=== PATIENT | female | born 1935 | race Caucasian/White ===

== ENCOUNTER 2017-09-09 18:49 | Emergency (ER) | payer MEDICARE, MEDICAID ==
--- NOTE | 2017-09-09 19:53 | ER Document Report ---
ED Medical Screen (RME) - General Chief Complaint: Shortness Of Breath Stated Complaint: SHORTNESS OF BREATH Time Seen by Provider: 09/09/17 19:44 Notes: RAPID MEDICAL EVALUATION DISCLOSURE I have seen this patient as part of a Rapid Medical Evaluation and, if applicable, placed any initially appropriate orders. The patient will be seen and fully evaluated, including a full history and physical exam, by a provider ( in Main ED or Fast Track) when a room becomes available. 81-year-old female here with [id number] who states that she is had some dyspnea on exertion and bilateral leg swelling over the past 1 week. The symptoms are worse with lying flat. She is needing to sleep on 2 pillows due to the severity of the symptoms. She has not tried anything for the symptoms. She denies any history of heart failure. EXAM Minimal bibasilar rales RRR 1+ pitting edema BLEs TRAVEL OUTSIDE OF THE [place] IN LAST 30 DAYS: No - Related Data Allergies/Adverse Reactions: No Known Allergies Allergy (Unverified 09/09/17 18:51) Physical Exam - Vital signs Vitals: Temp Pulse Resp BP Pulse Ox 98.0 F 80 18 143/59 H 96 09/09/17 18:55 09/09/17 18:55 09/09/17 18:55 09/09/17 18:55 09/09/17 18:55 Course - Vital Signs Vital signs: Temp Pulse Resp BP Pulse Ox 98.0 F 80 18 143/59 H 96 09/09/17 18:55 09/09/17 18:55 09/09/17 18:55 09/09/17 18:55 09/09/17 18:55
--- NOTE | 2017-09-09 20:27 | RADIOLOGY REPORT (SQ) ---
EXAM DESCRIPTION: CHEST 2 VIEWS COMPLETED DATE/TIME: 09/09/2017 8:20 pm REASON FOR STUDY: TRAVIS leg swelling; eval pneumonia edema ptx COMPARISON: None. EXAM PARAMETERS: NUMBER OF VIEWS: two views TECHNIQUE: Digital Frontal and Lateral radiographic views of the chest acquired. RADIATION DOSE: NA LIMITATIONS: none FINDINGS: LUNGS AND PLEURA: No opacities, masses or pneumothorax. No pleural effusion. MEDIASTINUM AND HILAR STRUCTURES: No masses or contour abnormalities. HEART AND VASCULAR STRUCTURES: Heart normal size. No evidence for failure. BONES: No acute findings. HARDWARE: None in the chest. OTHER: No other significant finding. IMPRESSION: NO ACUTE RADIOGRAPHIC FINDING IN THE CHEST. TECHNICAL DOCUMENTATION: JOB ID: [id number] [employer]- All Rights Reserved Reading location - IP/workstation name: [email or web address]
[2017-09-09 22:05] LABS: ABSOLUTE BASOPHILS # (AUTO) 0.1 10^3/uL (0.0-0.2); ABSOLUTE EOSINOPHILS # (AUTO) 0.3 10^3/uL (0.0-0.6); ABSOLUTE LYMPHOCYTES (AUTO) 2.1 10^3/uL (0.5-4.7); ABSOLUTE MONOCYTES (AUTO) 0.9 10^3/uL (0.1-1.4); ABSOLUTE NEUT (AUTO) 4.3 10^3/uL (1.7-8.2); BASOPHILS % (AUTO) 0.8 % (0-2); EOSINOPHILS % (AUTO) 4.2 % (0-6); HEMATOCRIT 39.6 % (36.0-47.0); HEMOGLOBIN 13.1 g/dL (12.0-15.5); LYMPHOCYTES % (AUTO) 27.7 % (13-45); MEAN CORPUSCULAR HEMOGLOBIN 29.9 pg (27.0-33.4); MEAN CORPUSCULAR VOLUME 91 fl (80-97); MONOCYTES % (AUTO) 11.3 % (3-13); PLATELET COUNT 322 10^3/uL (150-450); RED BLOOD COUNT 4.37 10^6/uL (3.72-5.28); RED CELL DISTRIBUTION WIDTH 14.3 % (11.5-14.0); TOTAL CELLS COUNTED % (AUTO) 100 %; WHITE BLOOD COUNT 7.7 10^3/uL (4.0-10.5)
[2017-09-09 22:20] LABS: ALANINE AMINOTRANSFERASE 23 U/L (9-52); ALBUMIN 3.9 g/dL (3.5-5.0); ALKALINE PHOSPHATASE 96 U/L (38-126); ANION GAP 7 (5-19); ASPARTATE AMINO TRANSFERASE 33 U/L (14-36); BILIRUBIN,DIRECT 0.3 mg/dL (0.0-0.4); BILIRUBIN,TOTAL 0.4 mg/dL (0.2-1.3); BLOOD UREA NITROGEN 19 mg/dL (7-20); CALCIUM 9.6 mg/dL (8.4-10.2); CARBON DIOXIDE 30 mmol/L (22-30); CHLORIDE 105 mmol/L (98-107); GLUCOSE 113 mg/dL (75-110); POTASSIUM 4.1 mmol/L (3.6-5.0); SODIUM 142.1 mmol/L (137-145)
[2017-09-09 22:31] LABS: NT PRO BNP 445 pg/mL (<450); TROPONIN I < 0.012 ng/mL
[2017-09-09 23:07] VITALS: BP 139/55
--- NOTE | 2017-09-09 23:22 | ER Document Report ---
ED General - General Chief Complaint: Shortness Of Breath Stated Complaint: SHORTNESS OF BREATH Time Seen by Provider: 09/09/17 19:44 Notes: Patient is an 81 year old female with history of hypertension who presents with 10 days of an evening cough. She presents with her [id number], a former registered nurse who reports that she is concerned the patient has been needing more pillows to sleep at night and seems to have a persistent, nagging cough at night that often keeps her awake. Symptoms have overall been unchanged since onset 10 days ago. They have tried cetirizine as well as doubling the patient' s omeprazole dosing without any significant improvement. Nothing other than the nighttime seems to worsen the patient's and his. The patient is clear to state that she overall feels fine during the day, no coughing or shortness of breath but that when she lies down at night she develops a persistent cough. She has not seen her general doctor regarding today's concerns. She has no history of COPD or CHF. She denies any complaints at the time of my evaluation. TRAVEL OUTSIDE OF THE [place] IN LAST 30 DAYS: No - Related Data Allergies/Adverse Reactions: No Known Allergies Allergy (Unverified 09/09/17 18:51) Past Medical History - General Information source: Patient, Relative - Social History Smoking Status: Never Smoker Chew tobacco use (# tins/day): No Frequency of alcohol use: None Drug Abuse: None Lives with: Family Family History: Reviewed & Not Pertinent Patient has suicidal ideation: No Patient has homicidal ideation: No - Past Medical History Cardiac Medical History: Reports: Hx Hypertension Renal/ Medical History: Denies: Hx Peritoneal Dialysis GI Medical History: Reports: Hx Gastroesophageal Reflux Disease Past Surgical History: Reports: Hx Cholecystectomy, Hx Oral Surgery - Cleft Palate Review of Systems - Review of Systems Notes: Constitutional: Negative for fever. HENT: Negative for sore throat. Eyes: Negative for visual changes. Cardiovascular: Negative for chest pain. Respiratory: Positive for cough Gastrointestinal: Negative for abdominal pain, vomiting or diarrhea. Genitourinary: Negative for dysuria. Musculoskeletal: Negative for back pain. Skin: Negative for rash. Neurological: Negative for headaches, weakness or numbness. 10 point ROS negative except as marked above and in HPI. Physical Exam - Vital signs Vitals: Temp Pulse Resp BP Pulse Ox 98.0 F 80 18 143/59 H 96 09/09/17 18:55 09/09/17 18:55 09/09/17 18:55 09/09/17 18:55 09/09/17 18:55 Interpretation: Hypertensive Notes: PHYSICAL EXAMINATION: GENERAL: Well-appearing, well-nourished and in no acute distress. HEAD: Atraumatic, normocephalic. EYES: Pupils equal round and reactive to light, extraocular movements intact, sclera anicteric, conjunctiva are normal. ENT: nares patent, oropharynx clear without exudates. Small palatal defect over the central hard palate. moderately dry mucous membranes. NECK: Normal range of motion, supple without lymphadenopathy LUNGS: Breath sounds clear to auscultation bilaterally and equal. No wheezes rales or rhonchi. HEART: Regular rate and rhythm without murmurs ABDOMEN: Soft, nontender, normoactive bowel sounds. No guarding, no rebound. No masses appreciated. EXTREMITIES: Normal range of motion, no pitting or edema. No cyanosis. NEUROLOGICAL: No focal neurological deficits. Moves all extremities spontaneously and on command. PSYCH: Normal mood, normal affect. SKIN: Warm, Dry, normal turgor, no rashes or lesions noted. Course - Re-evaluation Re-evalutation: 09/09/17 23:24 Patient presents with approximately 10 days of nighttime coughing but no significant additional symptoms. The patient appears extremely well on exam, vitals within normal limits, chest x-ray and labs unremarkable. 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 This does not appear to be playing any role however at the palate has a very small punctate wound that patient reports is at the baseline. She does have some transmitted upper airway noise which clears easily when she coughs. No stridor, lymphadenopathy, wheezing or decreased air movement on lung examination. I suspect that the patient may have developed allergic rhinitis with associated postnasal drip as her symptoms occur almost exclusively at night when she tries to go to sleep. She also notes a large amount of coughing and itching in the morning. I have started her on Flonase as well as loratadine. At this time point I do not suspect CHF, TN, pneumonia, pulmonary embolus, bacterial tracheitis, or any alternative life-threatening pathology. At this time will discharge with return precautions and follow-up recommendations. Verbal discharge instructions given a the bedside and opportunity for questions given. Medication warnings reviewed. Patient is in agreement with this plan and has verbalized understanding of return precautions and the need for primary care follow-up in the next 24-72 hours. - Vital Signs Vital signs: Temp Pulse Resp BP Pulse Ox 98.0 F 80 21 H 139/55 H 99 09/09/17 18:55 09/09/17 18:55 09/09/17 23:00 09/09/17 22:01 09/09/17 23:00 - Laboratory Result Diagrams: 09/09/17 21:43 09/09/17 21:43 Laboratory results interpreted by me: 09/09/17 09/09/17 21:43 21:43 RDW 14.3 H Glucose 113 H - Diagnostic Test Radiology reviewed: Image reviewed, Reports reviewed Radiology results interpreted by me: 09/10/17 03:14 Chest x-ray: No acute infiltrate or pneumothorax Discharge - Discharge Clinical Impression: Cough, Postnasal drip Condition: Good Disposition: HOME, SELF-CARE Additional Instructions: Your chest x-ray and labs are normal today and do not suggest a dangerous cause of the nighttime cough that you have been having. Please begin taking loratadine 10 mg daily and take Flonase before going to sleep at night. Return if you develop chest pain, shortness of breath, pass out, develop a fever greater than 100.4F, or have any other symptoms that are worrisome to you. Prescriptions: Fluticasone Propionate [Flonase Nasal [place] 50 Mcg/[place] 16 gm] 2 sprays NASL Q12 #1 inhaler Loratadine 10 mg PO DAILY #30 tablet
--- NOTE | 2017-09-10 00:23 | EKG REPORT ---
SEVERITY:- ABNORMAL ECG - SINUS RHYTHM LEFT VENTRICULAR HYPERTROPHY : Confirmed by: Macrina Hoang MD 10-Sep-2017 00:22:45
== END 2017-09-09 23:44 | disposition home or self-care (01) ==
LOC: ER 18:49
DX: R05 Cough (principal); R09.82 Postnasal drip; R06.02 Shortness of breath; I10 Essential (primary) hypertension; Z90.49 Acquired absence of other specified parts of digestive tract
CPT/HCPCS: 36415; 71046; 80053; 83880; 84484; 85025; 87040; 93005; 93010; 99285

== ENCOUNTER 2017-11-03 16:24 | Observation (INO) | payer MEDICARE ==
[2017-11-03] MEDS ORDERED: ACETAMINOPHEN 325 MG TABLET PO ONE (16:33)
[2017-11-03] MEDS ORDERED: NORMAL SALINE 1000 ML 1,000 ML IV ONE (16:33)
--- NOTE | 2017-11-03 16:38 | ER Document Report ---
ED General - General Mode of Arrival: Stretcher Information source: Patient, Relative TRAVEL OUTSIDE OF THE [place] IN LAST 30 DAYS: No - HPI Patient complains to provider of: Confusion Onset: This afternoon Onset/Duration: Sudden Quality of pain: No pain Exacerbated by: Denies Relieved by: Denies Similar symptoms previously: No Recently seen / treated by doctor: No <WILDA RESTREPO - Last Filed: 11/03/17 19:52> <ANGELI HINES - Last Filed: 11/03/17 20:50> - General Stated Complaint: CONFUSION Time Seen by Provider: 11/03/17 16:27 - HPI Notes: Patient is an 81-year-old female brought to the emergency room by EMS after family reported a period of confusion, apparently patient did not know where she was, stated that the home she was and was not the family home, she has had some urinary incontinence and urinary frequency, as well as a low-grade temperature, denies any nausea, vomiting or diarrhea, patient denies any pain complaints, no chest pain or shortness of breath, no headache, she is noted to have a temperature of 99 via EMS, she recently moved up here from [place] and is staying with daughter and grandson, patient also recalls that she passed out while walking back from the shower house which is about 20 feet from the house, she is having trouble remembering any details of events after that (WILDA RESTREPO) - Related Data Allergies/Adverse Reactions: No Known Allergies Allergy (Unverified 09/09/17 18:51) Past Medical History - General Information source: Patient - Social History Smoking Status: Unknown if Ever Smoked Family History: Reviewed & Not Pertinent - Past Medical History Cardiac Medical History: Reports: Hx Hypertension Renal/ Medical History: Denies: Hx Peritoneal Dialysis GI Medical History: Reports: Hx Gastroesophageal Reflux Disease Past Surgical History: Reports: Hx Cholecystectomy, Hx Oral Surgery - Cleft Palate <WILDA RESTREPO - Last Filed: 11/03/17 19:52> Review of Systems - Review of Systems Constitutional: See HPI EENT: No symptoms reported Cardiovascular: No symptoms reported Respiratory: No symptoms reported Gastrointestinal: No symptoms reported Genitourinary: Frequency, Incontinence Female Genitourinary: No symptoms reported Musculoskeletal: No symptoms reported Skin: No symptoms reported Hematologic/Lymphatic: No symptoms reported Neurological/Psychological: Confusion -: Yes All other systems reviewed and negative <WILDA RESTREPO - Last Filed: 11/03/17 19:52> Physical Exam - Vital signs Interpretation: Normal - General General appearance: Appears well, Alert - HEENT Head: Normocephalic, Atraumatic Eyes: Normal Pupils: PERRL - Respiratory Respiratory status: No respiratory distress Chest status: Nontender Breath sounds: Normal Chest palpation: Normal - Cardiovascular Rhythm: Regular Heart sounds: Normal auscultation Murmur: No - Abdominal Inspection: Normal Distension: No distension Bowel sounds: Normal Tenderness: Nontender Organomegaly: No organomegaly - Back Back: Normal, Nontender - Extremities General upper extremity: Normal inspection, Nontender, Normal color, Normal ROM , Normal temperature General lower extremity: Normal inspection, Nontender, Normal color, Normal ROM , Normal temperature, Normal weight bearing. No: Susan's sign - Neurological Neuro grossly intact: Yes Cognition: Normal Orientation: Disoriented to events Antonino Coma Scale Eye Opening: Spontaneous Wellman Coma Scale Verbal: Oriented Wellman Coma Scale Motor: Obeys Commands Wellman Coma Scale Total: 15 Speech: Normal Motor strength normal: LUE, RUE, LLE, RLE Sensory: Normal - Psychological Associated symptoms: Normal affect, Normal mood - Skin Skin Temperature: Warm Skin Moisture: Dry Skin Color: Normal <WILDA RESTREPO - Last Filed: 11/03/17 19:52> - Vital signs Vitals: Pulse Resp BP Pulse Ox 73 19 136/66 H 97 11/03/17 19:51 11/03/17 19:51 11/03/17 19:51 11/03/17 19:51 Course - EKG Interpretation by Pr EKG shows normal: Sinus rhythm Rate: Normal Rhythm: NSR Voltage: Consistant with LVH <WILDA RESTREPO - Last Filed: 11/03/17 19:52> - Laboratory Result Diagrams: 11/03/17 19:35 11/03/17 19:35 <ANGELI HINES - Last Filed: 11/03/17 20:50> - Re-evaluation Re-evalutation: 11/03/17 19:[address] Hines for pending blood work results and disposition ( WIDLA RESTREPO) 11/03/17 20:49 I discussed this case with the admitting hospitalist. All of her labs are unremarkable. He has accepted the patient for observation admission. (ANGELI HINES) - Vital Signs Vital signs: Temp Pulse Resp BP Pulse Ox 73 19 136/66 H 97 11/03/17 19:51 11/03/17 19:51 11/03/17 19:51 11/03/17 19:51 - Laboratory Laboratory results interpreted by me: 11/03/17 11/03/17 11/03/17 17:15 19:35 19:35 Hct 35.5 L Albumin 3.4 L Urine Blood SMALL H Discharge <WILDA RESTREPO - Last Filed: 11/03/17 19:52> - Discharge Admitting Provider: Hospitalist Unit Admitted: Telemetry <ANGELI HINES - Last Filed: 11/03/17 20:50> - Discharge Clinical Impression: Syncopal episodes Qualifiers: Syncope type: unspecified Qualified Code(s): R55 - Syncope and collapse Altered mental status Qualifiers: Altered mental status type: unspecified Qualified Code(s): R41.82 - Altered mental status, unspecified Condition: Fair Disposition: ADMITTED OBSERVATION
--- NOTE | 2017-11-03 17:13 | RADIOLOGY REPORT (SQ) ---
EXAM DESCRIPTION: CHEST SINGLE VIEW COMPLETED DATE/TIME: 11/03/2017 4:48 pm REASON FOR STUDY: fever COMPARISON: 09/09/2017 EXAM PARAMETERS: NUMBER OF VIEWS: One view. TECHNIQUE: Single frontal radiographic view of the chest acquired. RADIATION DOSE: NA LIMITATIONS: None. FINDINGS: LUNGS AND PLEURA: No opacities, masses or pneumothorax. No pleural effusion. MEDIASTINUM AND HILAR STRUCTURES: No masses. Contour normal. HEART AND VASCULAR STRUCTURES: Heart size is borderline. No evidence of failure. BONES: No acute findings. HARDWARE: None in the chest. OTHER: No other significant finding. IMPRESSION: Borderline heart size. No CHF. TECHNICAL DOCUMENTATION: JOB ID: [id number] [employer]- All Rights Reserved Reading location - IP/workstation name: [email or web address]
[2017-11-03 18:01] LABS: APPEARANCE,URINE CLEAR; BILIRUBIN,URINE NEGATIVE (NEGATIVE); COLOR,URINE STRAW; GLUCOSE, URINE NEGATIVE (NEGATIVE); KETONES,URINE NEGATIVE (NEGATIVE); LEUKOCYTE ESTERASE,URINE NEGATIVE (NEGATIVE); NITRITE,URINE NEGATIVE (NEGATIVE); PROTEIN,URINE NEGATIVE (NEGATIVE); URINE SPECIFIC GRAVITY 1.006; UROBILINOGEN,URINE NEGATIVE mg/dL (<2.0)
--- NOTE | 2017-11-03 18:36 | RADIOLOGY REPORT (SQ) ---
EXAM DESCRIPTION: CT HEAD WITHOUT COMPLETED DATE/TIME: 11/03/2017 6:27 pm REASON FOR STUDY: confusion COMPARISON: None. TECHNIQUE: Axial images acquired through the brain without intravenous contrast. Images reviewed wi th bone, brain and subdural windows. Additional sagittal and coronal reconstructions were generated. Images stored on PACS. All CT scanners at this facility use dose modulation, iterative reconstruction, and/or weight based d osing when appropriate to reduce radiation dose to as low as reasonably achievable (ALARA). [facility]: Dose Right [facility]: CareDose [facility]: Dose Right [facility]: Teradose 4D [facility]: Circassia RADIATION DOSE: mGy. LIMITATIONS: None. FINDINGS: VENTRICLES: Normal size and contour. CEREBRUM: No masses. No hemorrhage. No midline shift. No evidence for acute infarction. Few scatte red areas of low density in the white matter most likely chronic small vessel ischemic changes. CEREBELLUM: No masses. No hemorrhage. No alteration of density. No evidence for acute infarction. EXTRAAXIAL SPACES: No fluid collections. No masses. ORBITS AND GLOBE: No intra- or extraconal masses. Normal contour of globe without masses. CALVARIUM: No fracture. PARANASAL SINUSES: No fluid or mucosal thickening. SOFT TISSUES: No mass or hematoma. OTHER: No other significant finding. IMPRESSION: MILD CHRONIC MICROVASCULAR ISCHEMIA. NO ACUTE IMAGING FINDINGS IN THE BRAIN. EVIDENCE OF ACUTE STROKE: NO. COMMENT: Quality ID # [id number]: Final reports with documentation of one or more dose reduction techniques (e.g., Automated exposure control, adjustment of the mA and/or kV according to patient size, use of iterative reconstruction technique) TECHNICAL DOCUMENTATION: JOB ID: [id number] [employer]- All Rights Reserved Reading location - IP/workstation name: [email or web address]
[2017-11-03 20:02] LABS: ABSOLUTE BASOPHILS # (AUTO) 0.1 10^3/uL (0.0-0.2); ABSOLUTE EOSINOPHILS # (AUTO) 0.1 10^3/uL (0.0-0.6); ABSOLUTE LYMPHOCYTES (AUTO) 1.6 10^3/uL (0.5-4.7); ABSOLUTE MONOCYTES (AUTO) 0.7 10^3/uL (0.1-1.4); ABSOLUTE NEUT (AUTO) 4.5 10^3/uL (1.7-8.2); BASOPHILS % (AUTO) 0.7 % (0-2); EOSINOPHILS % (AUTO) 1.7 % (0-6); HEMATOCRIT 35.5 % (36.0-47.0); HEMOGLOBIN 12.1 g/dL (12.0-15.5); LYMPHOCYTES % (AUTO) 23.2 % (13-45); MEAN CORPUSCULAR HEMOGLOBIN 30.7 pg (27.0-33.4); MEAN CORPUSCULAR HGB CONC 34.1 g/dL (32.0-36.0); MEAN CORPUSCULAR VOLUME 90 fl (80-97); PLATELET COUNT 339 10^3/uL (150-450); RED BLOOD COUNT 3.95 10^6/uL (3.72-5.28); RED CELL DISTRIBUTION WIDTH 13.8 % (11.5-14.0); SEGMENTED NEUTROPHILS % (AUTO) 64.4 % (42-78); TOTAL CELLS COUNTED % (AUTO) 100 %
[2017-11-03 20:03] LABS: INTERNATIONAL RATION (INR) 1.02; PROTHROMBIN TIME 13.9 SEC (11.4-15.4)
[2017-11-03 20:11] LABS: VENOUS BLOOD BASE EXCESS 4.3 mmol/L; VENOUS BLOOD HCO3 30.7 mmol/L (20-32); VENOUS BLOOD PCO2 52.8 mmHg (35-63); VENOUS BLOOD PH 7.38 (7.30-7.42)
[2017-11-03 20:35] LABS: ALANINE AMINOTRANSFERASE 28 U/L (9-52); ALBUMIN 3.4 g/dL (3.5-5.0); ALKALINE PHOSPHATASE 90 U/L (38-126); ANION GAP 11 (5-19); ASPARTATE AMINO TRANSFERASE 23 U/L (14-36); BILIRUBIN,DIRECT 0.3 mg/dL (0.0-0.4); BILIRUBIN,TOTAL 0.5 mg/dL (0.2-1.3); BLOOD UREA NITROGEN 18 mg/dL (7-20); CALCIUM 9.2 mg/dL (8.4-10.2); CARBON DIOXIDE 26 mmol/L (22-30); CHLORIDE 106 mmol/L (98-107); GLUCOSE 91 mg/dL (75-110); POTASSIUM 4.1 mmol/L (3.6-5.0); SODIUM 143.1 mmol/L (137-145); TOTAL PROTEIN 6.5 g/dL (6.3-8.2)
[2017-11-03] MEDS ORDERED: ONDANSETRON HCL INJ/PF 4 MG/2 ML SDV IV PRN (20:51)
[2017-11-03] MEDS ORDERED: NORMAL SALINE 1000 ML 1,000 ML IV PRN (20:51)
[2017-11-03] MEDS ORDERED: ENOXAPARIN SODIUM INJ 40 MG/0.4 ML DISP.SYRIN SUBCUT ONE (22:00)
[2017-11-04] MEDS ORDERED: ACETAMINOPHEN 325 MG TABLET PO PRN (00:03)
--- NOTE | 2017-11-04 00:11 | PDOC H&P ---
History of Present Illness Admission Date/PCP: 11/03/17 20:57 Patient complains of: AMS, syncope History of Present Illness: JERZY BOYER is a 81 year old female presenting to the emergency department secondary to a near syncopal episode. Patient states her shower is detached from her house in her backyard and as she was walking to the shower she stumbled over her feet and fell. States she was able to get back up and go take her shower. On the way back from her shower patient was found to be confused by her family and patient herself cannot recall sequence of events until EMS was called and patient was brought to the emergency department for further workup and evaluation. Denies headache, denies blurry vision, denies chest pain. Past Medical History Cardiac Medical History: Reports: Hypertension GI Medical History: Reports: Gastroesophageal Reflux Disease Past Surgical History Past Surgical History: Reports: Cholecystectomy Social History Information Source: Patient Lives with: Family Smoking Status: Unknown if Ever Smoked Hx Recreational Drug Use: No Family History Family History: Reviewed & Not Pertinent Parental Family History Reviewed: Yes Children Family History Reviewed: Yes Sibling(s) Family History Reviewed.: Yes Medication/Allergy Home Medications: Fluticasone Propionate [Flonase Nasal [place] 50 Mcg/[place] 16 gm] 2 sprays NASL Q12 #1 inhaler 09/09/17 Loratadine 10 mg PO DAILY #30 tablet 09/09/17 Acetaminophen [Tylenol] 325 mg PO Q4HP PRN 11/03/17 Aspirin [Aspirin EC] 81 mg PO DAILY 11/03/17 Atorvastatin Calcium [Lipitor 10 mg Tablet] 10 mg PO QHS 11/03/17 Docusate Sodium [Colace 100 mg Capsule] 100 mg PO TIDP PRN 11/03/17 Losartan/Hydrochlorothiazide [Losartan-Hctz 50-12.5 mg Tab] 1 tab PO DAILY 11/03 Metoprolol Tartrate [Lopressor 50 mg Tablet] 50 mg PO BID 11/03/17 Omeprazole Magnesium [Prilosec Otc] 40 mg PO DAILY 11/03/17 Allergies/Adverse Reactions: No Known Allergies Allergy (Unverified 09/09/17 18:51) Review of Systems Constitutional: ABSENT: chills, fever(s), headache(s), weight gain, weight loss Eyes: ABSENT: visual disturbances Ears: ABSENT: hearing changes Cardiovascular: ABSENT: chest pain, dyspnea on exertion, edema, orthropnea, palpitations Respiratory: ABSENT: cough, hemoptysis Gastrointestinal: ABSENT: abdominal pain, constipation, diarrhea, hematemesis, hematochezia, nausea, vomiting Genitourinary: ABSENT: dysuria, hematuria Musculoskeletal: ABSENT: joint swelling Integumentary: ABSENT: rash, wounds Neurological: PRESENT: confusion, memory loss. ABSENT: abnormal gait, abnormal speech, dizziness, focal weakness, syncope Psychiatric: ABSENT: anxiety, depression, homidical ideation, suicidal ideation Endocrine: ABSENT: cold intolerance, heat intolerance, polydipsia, polyuria Hematologic/Lymphatic: ABSENT: easy bleeding, easy bruising Physical Exam Vital Signs: Temp Pulse Resp BP Pulse Ox 73 19 136/66 H 97 11/03/17 19:51 11/03/17 19:51 11/03/17 19:51 11/03/17 19:51 General appearance: PRESENT: no acute distress, well-developed, well-nourished Head exam: PRESENT: atraumatic, normocephalic Eye exam: PRESENT: conjunctiva pink, EOMI, PERRLA. ABSENT: scleral icterus Ear exam: PRESENT: normal external ear exam Mouth exam: PRESENT: moist, tongue midline Neck exam: ABSENT: carotid bruit, JVD, lymphadenopathy, thyromegaly Respiratory exam: PRESENT: clear to auscultation brianna. ABSENT: rales, rhonchi, wheezes Cardiovascular exam: PRESENT: RRR. ABSENT: diastolic murmur, rubs, systolic murmur Pulses: PRESENT: normal dorsalis pedis pul Vascular exam: PRESENT: normal capillary refill GI/Abdominal exam: PRESENT: normal bowel sounds, soft. ABSENT: distended, guarding, mass, organolmegaly, rebound, tenderness Rectal exam: PRESENT: deferred Extremities exam: PRESENT: full ROM. ABSENT: calf tenderness, clubbing, pedal edema Neurological exam: PRESENT: alert, awake, oriented to person, oriented to place , oriented to time, oriented to situation, CN II-XII grossly intact. ABSENT: motor sensory deficit Psychiatric exam: PRESENT: appropriate affect, normal mood. ABSENT: homicidal ideation, suicidal ideation Skin exam: PRESENT: dry, intact, warm. ABSENT: cyanosis, rash Results Laboratory Results: 11/03/17 11/03/17 11/03/17 19:35 19:35 19:35 WBC 7.0 Hgb 12.1 Sodium 143.1 Potassium 4.1 Troponin I 0.106 Impressions: Chest X-Ray 11/03/17 16:33 IMPRESSION: Borderline heart size. No CHF. Head CT 11/03/17 16:39 IMPRESSION: MILD CHRONIC MICROVASCULAR ISCHEMIA. NO ACUTE IMAGING FINDINGS IN THE BRAIN. EVIDENCE OF ACUTE STROKE: NO. Assessment & Plan - Diagnosis (1) Syncopal episodes Qualifiers: Syncope type: unspecified Qualified Code(s): R55 - Syncope and collapse Is this a current diagnosis for this admission?: Yes (2) Altered mental status Qualifiers: Altered mental status type: unspecified Qualified Code(s): R41.82 - Altered mental status, unspecified Is this a current diagnosis for this admission?: Yes (3) Troponin level elevated Is this a current diagnosis for this admission?: Yes Plan: Patient to be admitted to telemetry for further monitoring and evaluation. Patient's troponin appears to be elevated at this time, no acute chest pain, no acute EKG changes noted. We will continue to trend patient's troponins every 6 hours 3 oriented within normal limits. Head CT negative in ER for acute intracranial process and negative for stroke. Patient is currently alert oriented 3. Does not appear to be any acute distress. Will continue patient' s home medications. Brain MRI pending this a.m. along with echocardiogram. We will continue to monitor closely. - Time Time Spent: 30 to 50 Minutes Medications reviewed and adjusted accordingly: Yes Anticipated discharge: Home
[2017-11-04 08:03] LABS: ABSOLUTE EOSINOPHILS # (AUTO) 0.2 10^3/uL (0.0-0.6); ABSOLUTE LYMPHOCYTES (AUTO) 1.7 10^3/uL (0.5-4.7); ABSOLUTE MONOCYTES (AUTO) 0.5 10^3/uL (0.1-1.4); ABSOLUTE NEUT (AUTO) 2.6 10^3/uL (1.7-8.2); BASOPHILS % (AUTO) 0.9 % (0-2); EOSINOPHILS % (AUTO) 3.5 % (0-6); HEMATOCRIT 34.7 % (36.0-47.0); HEMOGLOBIN 11.9 g/dL (12.0-15.5); LYMPHOCYTES % (AUTO) 34.5 % (13-45); MEAN CORPUSCULAR HGB CONC 34.3 g/dL (32.0-36.0); MEAN CORPUSCULAR VOLUME 91 fl (80-97); MONOCYTES % (AUTO) 10.4 % (3-13); PLATELET COUNT 308 10^3/uL (150-450); RED BLOOD COUNT 3.83 10^6/uL (3.72-5.28); RED CELL DISTRIBUTION WIDTH 14.1 % (11.5-14.0); SEGMENTED NEUTROPHILS % (AUTO) 50.7 % (42-78); TOTAL CELLS COUNTED % (AUTO) 100 %; WHITE BLOOD COUNT 5.1 10^3/uL (4.0-10.5)
[2017-11-04 08:05] LABS: ANION GAP 8 (5-19); BLOOD UREA NITROGEN 14 mg/dL (7-20); CARBON DIOXIDE 26 mmol/L (22-30); CHLORIDE 109 mmol/L (98-107); GLUCOSE 88 mg/dL (75-110); POTASSIUM 3.8 mmol/L (3.6-5.0); SODIUM 142.5 mmol/L (137-145)
--- NOTE | 2017-11-04 09:10 | EKG REPORT ---
SEVERITY:- ABNORMAL ECG - SINUS RHYTHM LEFT VENTRICULAR HYPERTROPHY : Confirmed by: Courtney Haile 04-Nov-2017 09:09:28
--- NOTE | 2017-11-04 11:05 | RADIOLOGY REPORT (SQ) ---
EXAM DESCRIPTION: MRI HEAD WITHOUT COMPLETED DATE/TIME: 11/04/2017 10:53 am REASON FOR STUDY: syncope, amnesia R41.82 ALTERED MENTAL STATUS, UNSPECIFIED COMPARISON: None. TECHNIQUE: Multiplanar imaging includes non-contrasted T1, T2, FLAIR, and Diffusion with ADC map seq uences. Images stored on PACS. LIMITATIONS: None. FINDINGS: ANATOMY: No anomalies. Normal vascular flow voids. Pituitary fossa normal. CSF SPACES: Normal in size and contour. No hemorrhage. CEREBRUM: A few high-signal intensity lesions scattered throughout the white matter on FLAIR imaging with distribution suggesting chronic micro-vascular ischemic change. Sulci and gyri normal in size a nd contour. No evidence of hemorrhage, mass or extraaxial fluid collection. POSTERIOR FOSSA: No signal alteration. No hemorrhage. No edema, masses or mass effect. Internal jacinta tory canals, cerebello-pontine angles, mastoids normal. DIFFUSION: Negative for acute or sub-acute infarction. ORBITS: No masses. Globes normal. PARANASAL SINUSES: No fluid levels. Mucosa normal. OTHER: No other significant finding. IMPRESSION: MICROVASCULAR ISCHEMIC CHANGE. EVIDENCE OF ACUTE STROKE: NO. TECHNICAL DOCUMENTATION: JOB ID: [id number] [employer]- All Rights Reserved Reading location - IP/workstation name: [email or web address]
[2017-11-04] MEDS: PANTOPRAZOLE SODIUM 40 MG VIAL IV SCH ×3 (12:43→22:06)
[2017-11-04] MEDS: ENOXAPARIN SODIUM INJ 40 MG/0.4 ML DISP.SYRIN SUBCUT SCH (12:54)
--- NOTE | 2017-11-04 14:58 | PDOC PROGRESS REPORT ---
Subjective Progress Note for:: 11/04/17 Subjective:: The patient is resting comfortably. She is well oriented to person, place, time , and situation. However she does recall being very confused. Reason For Visit: SYNCOPE Physical Exam Vital Signs: Temp Pulse Resp BP Pulse Ox 98.0 F 84 18 133/58 H 98 11/04/17 12:35 11/04/17 14:45 11/04/17 12:35 11/04/17 12:35 11/04/17 12:35 Intake & Output 11/03/17 11/04/17 11/05/17 06:59 06:59 06:59 Intake Total 237 Balance 237 Weight 97.4 kg General appearance: PRESENT: no acute distress, cooperative, morbidly obese Respiratory exam: PRESENT: other - No increased work of breathing.. ABSENT: rales, rhonchi, wheezes Cardiovascular exam: PRESENT: RRR, other - No lateral PMI. No thrills.. ABSENT : gallop, rubs, systolic murmur Pulses: PRESENT: other - Diminished distal pulses. GI/Abdominal exam: PRESENT: other - The abdomen is morbidly obese. Bowel sounds are distant. I am unable to evaluate the abdomen for organomegaly, masses, or hernias. Rectal exam: PRESENT: deferred Extremities exam: ABSENT: calf tenderness, clubbing, pedal edema, tenderness Musculoskeletal exam: PRESENT: normal inspection. ABSENT: deformity, dislocation, tenderness Neurological exam: PRESENT: alert, awake, oriented to person, oriented to place , oriented to time, oriented to situation, CN II-XII grossly intact. ABSENT: motor sensory deficit Psychiatric exam: PRESENT: appropriate affect, normal mood Skin exam: PRESENT: dry, intact, warm Results Laboratory Results: 11/04/17 07:10 11/04/17 07:10 11/04/17 11/04/17 07:10 07:10 WBC 5.1 RBC 3.83 Hgb 11.9 L Hct 34.7 L MCV 91 MCH 31.0 MCHC 34.3 RDW 14.1 H Plt Count 308 Seg Neutrophils % 50.7 Lymphocytes % 34.5 Monocytes % 10.4 Eosinophils % 3.5 Basophils % 0.9 Absolute Neutrophils 2.6 Absolute Lymphocytes 1.7 Absolute Monocytes 0.5 Absolute Eosinophils 0.2 Absolute Basophils 0.0 Sodium 142.5 Potassium 3.8 Chloride 109 H Carbon Dioxide 26 Anion Gap 8 BUN 14 Creatinine 0.53 Est GFR ( Amer) > 60 Est GFR (Non-Af Amer) > 60 Glucose 88 Calcium 9.0 11/04/17 11/04/17 01:31 07:10 Troponin I 0.080 0.055 Impressions: Chest X-Ray 11/03/17 16:33 IMPRESSION: Borderline heart size. No CHF. Head CT 11/03/17 16:39 IMPRESSION: MILD CHRONIC MICROVASCULAR ISCHEMIA. NO ACUTE IMAGING FINDINGS IN THE BRAIN. EVIDENCE OF ACUTE STROKE: NO. Head MRI 11/04/17 00:00 IMPRESSION: MICROVASCULAR ISCHEMIC CHANGE. EVIDENCE OF ACUTE STROKE: NO. Assessment & Plan - Diagnosis (1) Near syncope Is this a current diagnosis for this admission?: Yes Plan: The patient states that she does not think that she lost consciousness, but she does remember being confused following the event. She states that she feels that she is completely resolved. She also recalls having "no warning" before the event. (2) Altered mental status Qualifiers: Altered mental status type: unspecified Qualified Code(s): R41.82 - Altered mental status, unspecified Is this a current diagnosis for this admission?: Yes Plan: MRI pending. Symptoms have resolved. (3) Troponin level elevated Is this a current diagnosis for this admission?: Yes Plan: Trending down. Echo pending. - Time Time Spent with patient: 25-34 minutes
[2017-11-04] MEDS ORDERED: ACETAMINOPHEN 325 MG PO PRN (16:14)
[2017-11-04] MEDS ORDERED: DOCUSATE SODIUM 100 MG CAPSULE PO PRN (16:14)
--- NOTE | 2017-11-04 18:52 | XCELERA REPORT ---
[address] [address] Transthoracic Echocardiogram Report Name: JERZY BOYER Age: 81 yrs Gender: Female : 1935 Patient Status: Inpatient Patient Location: [address] [place], [place] [address] Study Date: 11/04/2017 11:21 AM Height: 60 in Weight: 223 lb BSA: 2.0 m2 Procedure: A complete two-dimensional transthoracic echocardiogram was performed (2D, M-mode, spectral and color flow Doppler). The study was technically adequate with some images being suboptimal in quality. Reason For Study: syncope Ordering Physician: LETTY GARCIA Performed By: Chauncey Ramirez Interpretation Summary The left ventricular ejection fraction is normal. There is mild concentric left ventricular hypertrophy. The left ventricle is grossly normal size. Doppler measurements suggest pseudonormalized left ventricular relaxation, which is associated with grade II/IV or mild to moderate diastolic dysfunction Wall motion cannot be accurately commented on, but no definite regional wall motion abnormalities noted. The right ventricular systolic function is normal. The right ventricle is mild to moderately dilated. The right atrium is mildly dilated. The left atrium is mildly dilated. There is a mild amount of mitral regurgitation There is no mitral valve stenosis. There is a mild amount of aortic regurgitation There is no aortic valve stenosis There is a mild amount of tricuspid regurgitation There is moderate pulmonary hypertension by echo Right ventricular systolic pressure is estimated to be elevated at 50-60mmHg. The aortic root is not well visualized but is probably normal size. The inferior vena cava appeared normal and decreased > 50% with respiration (RAP 5-10 mmHg) There is no pericardial effusion. May consider mobile cardiac telemetry monitoring (MCT) for ruling out transient AFIB and other cardiac dyssrhythmia. MMode/2D Measurements & Calculations RVDd: 3.1 cm LVIDd: 4.7 cm FS: 44.5 % Ao root diam: 2.8 cm IVSd: 0.94 cm LVIDs: 2.6 cm EDV(Teich): 99.9 ml Ao root area: 6.1 cm2 LVPWd: 1.1 cm ESV(Teich): 24.2 ml LA dimension: 4.0 cm EF(Teich): 75.8 % LVOT diam: 1.9 cm LVOT area: 2.8 cm2 Doppler Measurements & Calculations MV E max carrillo: MV P1/2t max carrillo: Ao V2 max: AI max carrillo: 92.3 cm/sec 143.9 cm/sec 204.1 cm/sec 373.4 cm/sec MV A max carrillo: MV P1/2t: 62.2 msec Ao max PG: AI max P.0 cm/sec MVA(P1/2t): 3.5 cm2 16.7 mmHg 55.8 mmHg MV E/A: 1.2 MV dec slope: Ao V2 mean: AI dec slope: 123.1 cm/sec 169.1 cm/sec2 677.8 cm/sec2 Ao mean PG: AI P1/2t: MV dec time: 0.13 sec 7.7 mmHg 646.8 msec Ao V2 VTI: 46.8 cm SHIRA(I,D): 1.4 cm2 SHIRA(V,D): 1.3 cm2 LV V1 max PG: SV(LVOT): 65.6 ml PA V2 max: PI end-d carrillo: 3.6 mmHg 85.4 cm/sec 148.0 cm/sec LV V1 mean PG: PA max P.8 mmHg 2.9 mmHg LV V1 max: 94.3 cm/sec LV V1 mean: 62.1 cm/sec LV V1 VTI: 23.8 cm TR max carrillo: AV P1/2t-pr_phl: MV P1/2t-pr_phl: 342.9 cm/sec 646.8 msec 62.2 msec TR max P.0 mmHg Left Ventricle The left ventricle is grossly normal size. There is mild concentric left ventricular hypertrophy. The left ventricular ejection fraction is normal. Doppler measurements suggest pseudonormalized left ventricular relaxation, which is associated with grade II/IV or mild to moderate diastolic dysfunction. Wall motion cannot be accurately commented on, but no definite regional wall motion abnormalities noted. Right Ventricle The right ventricle is mild to moderately dilated. There is normal right ventricular wall thickness. The right ventricular systolic function is normal. Atria The right atrium is mildly dilated. The left atrium is mildly dilated. Interarterial septum not well visualized and not well dopplered. Cannot comment on ASD/PFO presence. Mitral Valve The mitral valve leaflets are sclerotic, but show no functional abnormalities. There is no mitral valve stenosis. There is a mild amount of mitral regurgitation. Aortic Valve The aortic valve is grossly normal. There is no aortic valve stenosis. There is a mild amount of aortic regurgitation. Tricuspid Valve The tricuspid valve is not well visualized, but is grossly normal. There is no tricuspid stenosis. There is a mild amount of tricuspid regurgitation. There is moderate pulmonary hypertension by echo. Right ventricular systolic pressure is estimated to be elevated at 50-60mmHg. Pulmonic Valve The pulmonic valve is not well visualized. Great Vessels The aortic root is not well visualized but is probably normal size. The inferior vena cava appeared normal and decreased > 50% with respiration (RAP 5-10 mmHg). Effusions There is no pericardial effusion. Incidental Findings May consider mobile cardiac telemetry monitoring (MCT) for ruling out transient AFIB. : LETTY GARCIA > Courtney Haile
[2017-11-04] MEDS ORDERED: ATORVASTATIN CALCIUM 10 MG TABLET PO SCH (22:00)
[2017-11-04] MEDS: METOPROLOL TARTRATE 50 MG TABLET PO SCH (22:05)
[2017-11-04] MEDS: FLUTICASONE NASAL SPRAY 50 MCG/SPRY 120 SPRAY/16 GM NASL SCH (22:06)
[2017-11-05] MEDS ORDERED: LANSOPRAZOLE 30 MG TAB.RAP.DR PO SCH (06:00)
[2017-11-05 07:43] VITALS: BP 122/52
[2017-11-05] MEDS: PANTOPRAZOLE SODIUM 40 MG VIAL IV SCH (09:19)
[2017-11-05] MEDS: FLUTICASONE NASAL SPRAY 50 MCG/SPRY 120 SPRAY/16 GM NASL SCH (09:20)
[2017-11-05] MEDS: METOPROLOL TARTRATE 50 MG TABLET PO SCH (09:20)
[2017-11-05] MEDS ORDERED: (PENDING PHARMACY ID) (Omeprazole Magnesium [Prilosec Otc] 40 MG) PO SCH (10:00)
[2017-11-05] MEDS ORDERED: HYDROCHLOROTHIAZIDE 12.5 MG TABLET PO SCH (10:00)
[2017-11-05] MEDS ORDERED: LORATADINE 10 MG TABLET PO SCH (10:00)
[2017-11-05] MEDS ORDERED: ASPIRIN 81 MG TABLET, ENT COATED PO SCH (10:00)
[2017-11-05] MEDS ORDERED: LOSARTAN POTASSIUM 50 MG TABLET PO SCH (10:00)
[2017-11-05] MEDS ORDERED: (PENDING PHARMACY ID) (Losartan/Hydrochlorothiazide [Losartan-Hctz 50-12.5 Mg Tab] 1 TAB) PO SCH (10:00)
[2017-11-05] MEDS: ENOXAPARIN SODIUM INJ 40 MG/0.4 ML DISP.SYRIN SUBCUT SCH (11:18)
--- NOTE | 2017-11-05 15:21 | PDOC DISCHARGE SUMMARY ---
General - Admit/Disc Date/PCP Admission Date/Primary Care Provider: 11/03/17 20:57 Discharge Date: 11/05/17 - Discharge Diagnosis (1) Near syncope Is this a current diagnosis for this admission?: Yes (2) Altered mental status Is this a current diagnosis for this admission?: Yes (3) Troponin level elevated Is this a current diagnosis for this admission?: Yes - Additional Information Discharge Diet: Cardiac Discharge Activity: Activity As Tolerated, No Driving Home Medications: Fluticasone Propionate [Flonase Nasal Waucoma 50 Mcg/Waucoma 16 gm] 2 sprays NASL Q12 #1 inhaler 09/09/17 Loratadine 10 mg PO DAILY #30 tablet 09/09/17 Acetaminophen [Tylenol] 325 mg PO Q4HP PRN 11/03/17 Aspirin [Aspirin EC] 81 mg PO DAILY 11/03/17 Atorvastatin Calcium [Lipitor 10 mg Tablet] 10 mg PO QHS 11/03/17 Docusate Sodium [Colace 100 mg Capsule] 100 mg PO TIDP PRN 11/03/17 Losartan/Hydrochlorothiazide [Losartan-Hctz 50-12.5 mg Tab] 1 tab PO DAILY 11/03 Metoprolol Tartrate [Lopressor 50 mg Tablet] 50 mg PO BID 11/03/17 Omeprazole Magnesium [Prilosec Otc] 40 mg PO DAILY 11/03/17 History of Present Illness History of Present Illness: JERZY BOYER is a 81 year old female presenting to the emergency department secondary to a near syncopal episode. Patient states her shower is detached from her house in her backyard and as she was walking to the shower she stumbled over her feet and fell. States she was able to get back up and go take her shower. On the way back from her shower patient was found to be confused by her family and patient herself cannot recall sequence of events until EMS was called and patient was brought to the emergency department for further workup and evaluation. Denies headache, denies blurry vision, denies chest pain. Hospital Course Hospital Course: The patient had a CT of the head in the ED that was negative for acute pathology. She was admitted to a medical bed on telemetry. She was ruled out for FL by EKG and enzyme criteria. She had an MRI which demonstrated no acute pathology, but did show chronic microvascular ischemic changes.. Echocardiogram demonstrated Grade II/IV diastolic dysfunction, a normal left ventricular diastolic dysfunction, and no wall motion abnormalities. The patient's sensorium cleared to baseline. She will follow up with Dr. Álvarez for a holter monitor to rule out an arrhythmic cause of her syncopal episode. Physical Exam Vital Signs: Temp Pulse Resp BP Pulse Ox 97.8 F 79 19 122/52 L 99 11/05/17 11:37 11/05/17 11:37 11/05/17 11:37 11/05/17 11:37 11/05/17 11:37 Intake & Output 11/04/17 11/05/17 11/06/17 06:59 06:59 06:59 Intake Total 711 Balance 711 Weight 97.4 kg 99.7 kg General appearance: PRESENT: no acute distress, obese Respiratory exam: PRESENT: other - No increased work of breathing. No wheezes, rales, or rhonchi. No tactile fremitus. Cardiovascular exam: PRESENT: RRR. ABSENT: gallop, rubs, systolic murmur GI/Abdominal exam: PRESENT: mass, other - The abdomen is morbidly obese. Bowel sounds are distant. I am unable to evaluate the abdomen for organomegaly, masses , or hernias due to the patient's body habitus. Rectal exam: PRESENT: deferred Neurological exam: PRESENT: alert, awake, oriented to person, oriented to place , oriented to time, oriented to situation, CN II-XII grossly intact. ABSENT: motor sensory deficit Skin exam: PRESENT: dry, intact, warm Results Laboratory Results: 11/04/17 07:10 11/04/17 07:10 11/04/17 11/04/17 01:31 07:10 Troponin I 0.080 0.055 Impressions: Chest X-Ray 11/03/17 16:33 IMPRESSION: Borderline heart size. No CHF. Head CT 11/03/17 16:39 IMPRESSION: MILD CHRONIC MICROVASCULAR ISCHEMIA. NO ACUTE IMAGING FINDINGS IN THE BRAIN. EVIDENCE OF ACUTE STROKE: NO. Head MRI 11/04/17 00:00 IMPRESSION: MICROVASCULAR ISCHEMIC CHANGE. EVIDENCE OF ACUTE STROKE: NO. Qualifiers - * PATIENT BEING DISCHARGED WITH ANY OF THE FOLLOWING DIAGNOSIS: No Plan Discharge Plan: Discharge to home to follow up with Dr. Haile for a holter monitor. Time Spent: Greater than 30 Minutes
== END 2017-11-05 12:15 | disposition home or self-care (01) ==
LOC: ER 16:24 → EH 20:57 → 3N 23:05
PROVIDERS: ADMIT Family Medicine; ATTEND Family Medicine
DX: R55 Syncope and collapse (principal); R41.82 Altered mental status, unspecified; R79.89 Other specified abnormal findings of blood chemistry; I67.82 Cerebral ischemia; I11.9 Hypertensive heart disease without heart failure; E66.01 Morbid (severe) obesity due to excess calories; R32 Unspecified urinary incontinence; R35.0 Frequency of micturition; R41.3 Other amnesia; W01.0XXA Fall on same level from slipping, tripping and stumbling without subsequent striking against object, initial encounter; Y93.01 Activity, walking, marching and hiking; Y92.007 Garden or yard of unspecified non-institutional (private) residence as the place of occurrence of the external cause; K21.9 Gastro-esophageal reflux disease without esophagitis; Z79.899 Other long term (current) drug therapy; Z68.41 Body mass index [BMI] 40.0-44.9, adult; Z90.49 Acquired absence of other specified parts of digestive tract; Z79.82 Long term (current) use of aspirin
CPT/HCPCS: 93005; 99285; 36415 ×2; 87040; 87086; 82962; 85025 ×2; 85610; 80048; 80053; 81001; 84484 ×2; 82803; 83605; 93306; 70551; 71045; 70450; 93010; 97530; 97116; 97163; A9270 ×9; J1650; C9113 ×2; G8978; G8979; G8980; S0164